=== PATIENT | male | born 1955 | race African-American/Black ===

== ENCOUNTER 2023-11-25 10:35 | Observation (INO) ==
--- NOTE | 2023-11-25 11:28 | Emergency Department Note ---
Impression & Plan Atrial flutter ADMIT ED Provider Note HPI: History obtained from patient The patient is a 67-year-old gentleman who presents the emergency department with a chief complaint of abnormal EKG in the outpatient setting. Patient states that he recently moved here in December 2022 from [place], patient [facility] and his EKG showed what appeared to be in atrial flutter with a rate of 120. Patient was referred to the ED for further management. Patient denies any chest pain or shortness of breath, on arrival here to the ED the patient is moderately hypertensive at 150/101, heart rate is 118, patient is saturating well on room air on my initial assessment otherwise appears to be in no acute distress. Patient states he has no history of atrial fibrillation. ROS: - Per HPI Differential Diagnosis: Arrhythmia to include atrial fibrillation with RVR, atrial flutter, SVT, WPW, ventricular tachycardia, acute coronary syndrome, pulmonary embolism, acute CHF exacerbation, amongst other potential pathologies. *Outpatient medications and allergy history reviewed. PE: General: Alert, obese, no acute distress HEENT: Normocephalic, trachea midline Eyes: Extraocular eye movement is intact, no scleral erythema Pulmonary: Clear to auscultation bilaterally, no wheezing Cardio: Tachycardic rate with regular rhythm GI: Abdomen is soft to palpation : No suprapubic tenderness MSK: No evidence of trauma or malformation of the extremities, no edema Skin: No evidence of rash Neuro: Alert, no focal deficits Psychiatric: Cooperative INDEPENDENT INTERPRETATIONS: playground monitor: (As interpreted by myself): - An order was placed for continuous cardiac monitoring - Patient was noted to be in atrial flutter with a rate of 120 EKG #1: (As interpreted by myself): Rate: 23 Rhythm: Atrial flutter Intervals: Within normal limits ST changes: No ST elevation Time: 1040 EKG #2: (As interpreted by myself): Rate: 86 Rhythm: Atrial flutter with variable AV block Intervals: Within normal limits ST changes: No ST elevation Time: 1203 Chest x-ray: (As interpreted by myself): -CHF Interventions provided in ED: -IV diltiazem Medical Decision Making: IV was established and lab work obtained, patient was placed on monitoring engineer. Lab work shows no leukocytosis, hemoglobin is stable at 13.4, platelet count is normal, CMP does not show any critical findings, troponin is elevated at 73.8, BNP is mildly elevated at 193. Patient denies any chest pain, low suspicion for ACS, suspect troponin elevation is likely related to demand ischemia. Initial EKG appears to show atrial flutter, patient was given IV diltiazem bolus for rate control and rate did improve into the 80s. Repeat EKG per my interpretation shows more obvious atrial flutter with variable block. No acute ischemic changes are noted per my interpretation. I discussed the patient's presentation with on-call cardiology, Dr. Taylor, who recommends admission at this time for rate control, discussion about anticoagulation strategy, echocardiogram, and further management. Case was then discussed with the on- call hospitalist service, Robert Okeefe PA-C, and the patient was placed for admission in stable condition. Consultants/Discussions held with other healthcare providers: -Cardiology, Dr. Taylor -Hospitalist service, Dr. Marie/Robert Okeefe PA-C Disposition discussion held by myself with: -Patient * CRITICAL CARE TIME: ( 35 ) minutes -Stabilization of tachyarrhythmia/atrial flutter with elevated rates requiring IV medications for rate control, time spent at the bedside, interpretation of multiple EKGs, discussion with subspecialty/cardiology service, discussion with hospitalist service and arrangement of admission Diagnosis: 1. New onset atrial flutter, acute 2. Elevated high-sensitivity troponin level, acute 3. Elevated BNP Disposition: Admission Erik Sweeney DO Emergency Medicine Past Med/Surg History Social History Preferred Language: Turkmen Feels Safe at Home: Yes Allergies Allergies Allergy/AdvReac Type Severity Reaction Status Date / Time ibuprofen [From Motrin] Allergy Unknown Verified 11/25/23 12:13 naproxen Allergy Unknown Verified 11/25/23 12:13 sertraline [From Zoloft] Allergy Unknown Verified 11/25/23 12:13 lisinopril AdvReac Unknown Verified 11/25/23 12:13 Home Meds Home Medications Medication Instructions Recorded Confirmed allopurinol 100 mg tablet 200 mg PO DAILY 11/25/23 11/25/23 atorvastatin 80 mg tablet 40 mg PO DAILY 11/25/23 11/25/23 carboxymethylcellulose sodium 0.5 1 drp OPB QID 11/25/23 11/25/23 % eye drops in a dropperette cholecalciferol (vitamin D3) 25 25 mcg PO DAILY 11/25/23 11/25/23 mcg (1,000 unit) tablet (Vitamin D3) clopidogrel 75 mg tablet (Plavix) 75 mg PO DAILY 11/25/23 11/25/23 cyanocobalamin (vitamin B-12) 1,000 mcg PO DAILY 11/25/23 11/25/23 1,000 mcg tablet (Vitamin B-12) diclofenac sodium 1 % topical gel 2 g topical QID PRN .joint pain 11/25/23 11/25/23 duloxetine 20 mg capsule,delayed 20 mg PO DAILY 11/25/23 11/25/23 release hydroxyzine HCl 10 mg tablet 50 mg PO BID PRN Anxiety 11/25/23 11/25/23 losartan 25 mg tablet 25 mg PO DAILY 11/25/23 11/25/23 oxybutynin chloride 5 mg 5 mg PO DAILY 11/25/23 11/25/23 tablet,extended release 24 hr prazosin 2 mg capsule 2 mg PO HS 11/25/23 11/25/23 sildenafil 25 mg tablet 25 mg PO DAILY PRN .ED 11/25/23 11/25/23 trazodone 50 mg tablet 50 mg PO HS PRN Insomnia 11/25/23 11/25/23 turmeric 400 mg capsule 0 mg PO DAILY PRN .. 11/25/23 11/25/23 Results & Data (ED) Vital Signs Vital Signs - 24 hr 11/25/23 10:40 11/25/23 10:48 11/25/23 10:50 Temperature 36.7 C Temperature Source Oral Pulse Rate 123 H 123 H Pulse Rate [Right Finger] 118 H Pulse Rate from SpO2 Sensor 123 H Pulse Rhythm Respiratory Rate 24 20 Respiratory Effort / Characteristics Non-Labored Spontaneous Short of Breath SOB on Exertion Normal for Patient Respiratory Depth Normal Respiratory Pattern Regular Blood Pressure 150/101 H Blood Pressure [Left Arm] 150/101 H Blood Pressure Mean 117 Blood Pressure Mean [Left Arm] 117 Blood Pressure Position [Left Arm] Semi-fowlers Pulse Oximetry 92 91 Oxygen Delivery Method Room Air Sepsis Recent Fever Within 48 Hours Sepsis New/Unexplained Change in Mental Status Sepsis Action Taken by Nursing 11/25/23 10:52 11/25/23 11:10 11/25/23 11:10 Temperature Temperature Source Pulse Rate 124 H Pulse Rate [Right Finger] Pulse Rate from SpO2 Sensor 124 H Pulse Rhythm Respiratory Rate 19 Respiratory Effort / Characteristics Short of Breath SOB on Exertion Respiratory Depth Respiratory Pattern Blood Pressure 129/102 H Blood Pressure [Left Arm] Blood Pressure Mean 111 Blood Pressure Mean [Left Arm] Blood Pressure Position [Left Arm] Pulse Oximetry 93 Oxygen Delivery Method Room Air Sepsis Recent Fever Within 48 Hours No Sepsis New/Unexplained Change in Mental Status N/A Sepsis Action Taken by Nursing No Action Required 11/25/23 11:45 11/25/23 12:07 11/25/23 12:15 Temperature Temperature Source Pulse Rate 86 86 94 H Pulse Rate [Right Finger] Pulse Rate from SpO2 Sensor 87 99 H Pulse Rhythm Irregular Respiratory Rate 15 15 18 Respiratory Effort / Characteristics Respiratory Depth Respiratory Pattern Blood Pressure 132/83 161/82 H Blood Pressure [Left Arm] Blood Pressure Mean 99 108 Blood Pressure Mean [Left Arm] Blood Pressure Position [Left Arm] Pulse Oximetry 92 92 92 Oxygen Delivery Method Room Air Sepsis Recent Fever Within 48 Hours Sepsis New/Unexplained Change in Mental Status Sepsis Action Taken by Nursing 11/25/23 12:30 11/25/23 13:00 11/25/23 13:00 Temperature Temperature Source Pulse Rate 106 H 104 H Pulse Rate [Right Finger] Pulse Rate from SpO2 Sensor 108 H Pulse Rhythm Respiratory Rate 30 H 26 H Respiratory Effort / Characteristics Respiratory Depth Respiratory Pattern Blood Pressure 149/98 H Blood Pressure [Left Arm] Blood Pressure Mean 120 Blood Pressure Mean [Left Arm] Blood Pressure Position [Left Arm] Pulse Oximetry 96 Oxygen Delivery Method Sepsis Recent Fever Within 48 Hours Sepsis New/Unexplained Change in Mental Status Sepsis Action Taken by Nursing 11/25/23 13:17 11/25/23 13:17 Temperature Temperature Source Pulse Rate 86 Pulse Rate [Right Finger] Pulse Rate from SpO2 Sensor 91 H Pulse Rhythm Respiratory Rate 18 Respiratory Effort / Characteristics Respiratory Depth Respiratory Pattern Blood Pressure 167/104 H Blood Pressure [Left Arm] Blood Pressure Mean 127 Blood Pressure Mean [Left Arm] Blood Pressure Position [Left Arm] Pulse Oximetry 94 Oxygen Delivery Method Sepsis Recent Fever Within 48 Hours Sepsis New/Unexplained Change in Mental Status Sepsis Action Taken by Nursing Laboratory Data 11/25/23 10:50 11/25/23 10:50 Lab Results 11/25/23 Range/Units 10:50 WBC 7.45 (4.8-10.8) K/ul RBC 4.76 (4.70-6.10) M/uL Hgb 13.4 L (14.0-18.0) g/dl Hct 41.9 L (42.0-52.0) % MCV 88.0 (80.0-100.0) fL MCH 28.2 (25.0-34.0) pg MCHC 32.0 (32.0-36.0) g/dL RDW Std Deviation 53.1 H (36.4-46.3) fL RDW Coeff of Dejan 16.2 H (11.5-14.5) % Plt Count 250 (130-400) K/uL MPV 9.4 (9.4-12.4) fL Immature Gran % (Auto) 0.4 % Neut % (Auto) 63.3 % Lymph % (Auto) 23.5 % Dubois % (Auto) 10.5 % Eos % (Auto) 1.6 % Baso % (Auto) 0.7 % Neut # (Auto) 4.72 (1.40-6.50) K/uL Lymph # (Auto) 1.75 (1.20-3.40) K/uL Dubois # (Auto) 0.78 H (0.11-0.59) K/uL Eos # (Auto) 0.12 (0.00-0.50) K/uL Baso # (Auto) 0.05 (0.00-0.20) K/uL Immature Gran # (Auto) 0.03 (0.01-0.20) K/uL PT 12.1 H (9.0-12.0) Seconds INR 1.1 (0.9-1.1) APTT 29 (21-31) Seconds PTT Ratio 1.0 Sodium 138 (136-145) mmol/L Potassium 4.0 (3.5-5.1) mmol/L Chloride 103 (98-107) mmol/L Carbon Dioxide 28 (21-32) mmol/L Anion Gap 7 (3-11) BUN 19 (6-23) mg/dl Creatinine 1.27 (0.6-1.4) mg/dl Est Cr Clr Drug Dosing 81.9 ml/min Est GFR ( Amer) 67.8 ml/min Est GFR (Non-Af Amer) 58.5 ml/min BUN/Creatinine Ratio 15.0 (10-20) Glucose 102 H (70-99(Fasting)) mg/dl Calcium 9.1 (8.6-10.3) mg/dl Magnesium 1.6 L (1.7-2.4) mg/dl Total Bilirubin 0.7 (0.2-1.0) mg/dl AST 22 (13-39) U/L ALT 21 (7-52) U/L Alkaline Phosphatase 152 H (34-104) U/L Troponin I High Sens 73.8 H* (0-20) pg/ml B-Natriuretic Peptide 193 H (0-100) pg/ml Total Protein 7.4 (6.0-8.3) gm/dl Albumin 3.9 (3.4-5.0) gm/dl Globulin 3.5 (2.5-4.0) gm/dl Albumin/Globulin Ratio 1.1 (0.9-2) Administered Medications Heparin Sodium/Dextrose (Heparin Sodium/Dextrose) 25,000 units in 500 mls @ 20 mls/hr IV .Q24H [facility]; Protocol Stop: 12/25/23 13:59 Last Admin: 11/25/23 15:02 Dose: 1,000 units/hr, 20 mls/hr Documented By: RADHA Co-signed By: LATONIA Discontinued Medications Diltiazem HCl (Diltiazem Hcl 5 Mg/Ml 5 Ml Vial) 10 mg IV NOW STA Stop: 11/25/23 11:25 Last Admin: 11/25/23 11:34 Dose: 10 mg Documented By: RADHA Co-signed By: RAQUEL Furosemide (Furosemide Inj 20 Mg/2 Ml Vial) 20 mg IV ONE ONE Stop: 11/25/23 13:51 Last Admin: 11/25/23 14:51 Dose: 20 mg Documented By: RADHA Heparin Sodium (Porcine) (Heparin Sod (Porcine) 1000 Unit/Ml) 4,000 units IV NOW ONE Stop: 11/25/23 14:46 Last Admin: 11/25/23 15:03 Dose: 4,000 units Documented By: RADHA Co-signed By: LATONIA Heparin Sodium (Porcine) (Heparin Sod (Porcine) 1000 Unit/Ml) Confirm Administered Dose 1,000 units .ROUTE .STK-MED ONE Stop: 11/25/23 14:38 Last Admin: 11/25/23 15:00 Dose: Not Given Documented By: RADHA Heparin Sodium/Dextrose (Heparin 58318 Unit/500 Ml D5w) Confirm Administered Dose 25,000 units IV .STK-MED ONE Stop: 11/25/23 14:38 Last Admin: 11/25/23 15:00 Dose: Not Given Documented By: RADHA Sodium Chloride (Nss) 1,000 mls @ 999 mls/hr IV .Q1H1M ONE Stop: 11/25/23 12:24 Last Infusion: 11/25/23 12:35 Dose: Infused Documented By: Admin: 11/25/23 11:34 Dose: 999 mls/hr Documented By: RADHA Metoprolol Tartrate (Metoprolol Tartrate 25 Mg Tab) 25 mg PO NOW STA Stop: 11/25/23 13:17 Last Admin: 11/25/23 14:54 Dose: 25 mg Documented By: RADHA Nitroglycerin (Nitroglycerin 2% Ointment 30gm Tube) 0.5 inch EXT NOW ONE Stop: 11/25/23 14:35 Last Admin: 11/25/23 15:11 Dose: Not Given Documented By: RADHA Imaging Data Radiologist's Impression: Chest X-Ray 11/25/23 11:07 SINGLE VIEW CHEST CLINICAL HISTORY: Atypical chest pain. FINDINGS: An AP, portable, upright chest radiograph is obtained. No prior studies are available for comparison at the time of dictation. The heart is enlarged. There is pulmonary vascular congestion. No airspace consolidation or large pleural effusion identified. Trace pleural fluid is seen along the right minor fissure. No pneumothorax is seen. The bony thorax is grossly intact. IMPRESSION: Cardiomegaly with evidence of congestive failure. ACT 112: Negative or not required by law. Electronically signed by: Nino Polanco M.D. 11/25/2023 11:53 AM Discharge Plan Visit Data Chief Complaint: Cardiac Assessment ED Provider: Erik Sweeney Discharge Problem: Atrial flutter
[2023-11-25] MEDS: SODIUM CHLORIDE 0.9% 1,000 ML IV ONE (11:34)
[2023-11-25] MEDS: dilTIAZem HCl 5 MG/ML 5 ML VIAL IV STA (11:34)
--- NOTE | 2023-11-25 11:39 | Electrocardiogram Report ---
Test Reason : Blood Pressure : / mmHG Vent. Rate : 123 BPM Atrial Rate : 246 BPM P-R Int : 000 ms QRS Dur : 086 ms QT Int : 292 ms P-R-T Axes : -85 -57 111 degrees QTc Int : 418 ms Probable Atrial flutter with 2:1 A-V conduction Left anterior fascicular block Left ventricular hypertrophy with repolarization abnormality Minor ST elevation in Inferior leads Abnormal ECG No previous ECGs available Confirmed by Vishal Taylor ([id number]) on 11/25/2023 11:39:15 AM Referred By: Confirmed By:Vishal Taylor
[2023-11-25 11:49] LABS: Basophils # (auto) 0.05 K/uL (0.00-0.20); Basophils % (auto) 0.7 %; Eosinophils # (auto) 0.12 K/uL (0.00-0.50); Eosinophils % (auto) 1.6 %; Hematocrit (blood only) 41.9 % (42.0-52.0); Hemoglobin 13.4 g/dl (14.0-18.0); Immature Granulocytes # (auto) 0.03 K/uL (0.01-0.20); Immature Granulocytes % (auto) 0.4 %; Lymphocytes # (auto) 1.75 K/uL (1.20-3.40); Lymphocytes % (auto) 23.5 %; Mean Corpuscular Hemoglobin 28.2 pg (25.0-34.0); Mean Platelet Volume 9.4 fL (9.4-12.4); Monocytes # (auto) 0.78 K/uL (0.11-0.59); Monocytes % (auto) 10.5 %; Neutrophils # (auto) 4.72 K/uL (1.40-6.50); Neutrophils % (auto) 63.3 %; Platelet Count 250 K/uL (130-400); RDW Coefficient of Variation 16.2 % (11.5-14.5); RDW Standard Deviation 53.1 fL (36.4-46.3); Red Blood Count 4.76 M/uL (4.70-6.10); White Blood Count 7.45 K/ul (4.8-10.8)
--- NOTE | 2023-11-25 11:54 | XRay Report ---
SINGLE VIEW CHEST CLINICAL HISTORY: Atypical chest pain. FINDINGS: An AP, portable, upright chest radiograph is obtained. No prior studies are available for c omparison at the time of dictation. The heart is enlarged. There is pulmonary vascular congestion. No airspace consolidation or large pleural effusion identified. Trace pleural fluid is seen along the r ight minor fissure. No pneumothorax is seen. The bony thorax is grossly intact. IMPRESSION: Cardiomegaly with evidence of congestive failure. ACT 112: Negative or not required by law. Electronically signed by: Nino Polanco M.D. 11/25/2023 11:53 AM
[2023-11-25 11:56] LABS: Albumin Globulin Ratio 1.1 (0.9-2); Albumin Level 3.9 gm/dl (3.4-5.0); Bilirubin,Total 0.7 mg/dl (0.2-1.0); Calcium 9.1 mg/dl (8.6-10.3); Creatinine Clr Calc Pharmacy 81.9 ml/min; Est GFR (African American) 67.8 ml/min; Est GFR (Non-African American) 58.5 ml/min; Globulin 3.5 gm/dl (2.5-4.0); Total Protein 7.4 gm/dl (6.0-8.3)
[2023-11-25 12:05] LABS: INR 1.1 (0.9-1.1); Partial Thromboplastin Time 29 Seconds (21-31); Prothrombin Time 12.1 Seconds (9.0-12.0)
[2023-11-25 12:09] LABS: Troponin I High Sensitivity 73.8 pg/ml (0-20)
--- NOTE | 2023-11-25 13:20 | History & Physical Report ---
Date of Service November 25, 2023 Assessment & Plan (1) Atrial flutter: Plan: -Currently in rate controlled atrial flutter with variable AV block and otherwise stable -[facility] in atrial flutter with HR in the 120's -Patient reports he has been experiencing GRIGGS with left sided chest pain over the past 2-3 months >No other radiation of pain, resolves with rest -Appears volume overloaded on exam with BL non-pitting edema and signs of congestive failure on CXR -Cardiology was consulted and will be following -S/P 1L NSS and 10 mg IV diltiazem in the ED -Will start the patient on a weight based heparin drip w/bolus while the rest of his workup is obtained -Will start 25 mg PO Metoprolol Tartrate BID with first dose now -Will obtain TTE, BNP, repeat high sen trop on admission -Will obtain BL LE venous dopplers to monitor for signs of DVT -If concerning findings on Echo and/or venous dopplers will obtain CTA of the chest w/PE protocol >Patient is being started on a heparin drip on admission, regardless -Will give 20 mg IV lasix now, will wait for the rest of his workup to order additional diuretics -Will obtain mag level -Heparin drip for DVT PPX -HH/DMII diet with 2gm sodium and 1800 mL fluid restriction for now -AM CBC, BMP, mag, PT/INR (2) Elevated troponin: Plan: -Initial high sen trop elevated at 7 3 -Patient is currently asymptomatic at rest but has been experiencing GRIGGS with left sided chest pain for the past 2-3 months -ECG shows atrial flutter with variable conduction block, does not appear to have acute ST segment or T-wave changes -At this time his elevated troponin is most likely due to demand from volume overload and atrial flutter, but cannot rule out ACS at this time -Will follow 2 hour high sen trop and continue to trend q6h overnight -Will follow TTE and BL venous dopplers -Continue heparin drip and follow cardiology consult (3) Volume overload: Plan: -Unsure at this time if his volume overload is the result of his atrial flutter leading to CHF or if his volume overload led to his a-flutter at this time -Stable on RA and without respiratory distress -Will give 20 mg IV lasix now as he received 1L NSS prior to admission -Will follow TTE -Will wait to order additional diuresis on admission until the rest of his workup is back -HH/DMII diet with 2gm sodium and 1800 mL fluid restrictions for now -Follow cardiology consult (4) DMII (diabetes mellitus, type 2): Plan: -Reports latest A1c was 6.7 in the [place] -[facility] the [facility] -Glucose in the ED was 102 -Will monitor BSG ACHS, goal is 110-160 -Start CF of 50 for now, will hold carb ratio -Adjust regimen as needed (5) HTN (hypertension): Plan: -Currently stable -Will continue losartan -Monitor for hypotension with starting metoprolol (6) Cerebral arteriosclerosis with history of previous stroke: Plan: -Baseline LUE weakness since previous CVA in 2016 -Continue statin and plavix (7) Swelling of both lower extremities: Plan: -Follow Venous dopplers, TTE, and response to 20 mg IV lasix on admission (8) Anxiety: Plan: -Continue Duloxetine, HS trazodone (9) Tobacco abuse: Plan: -Currently down to 1 cigarette daily -Continue to stress the importance of cessation -Will order prn nicotine gum as requested by the patient Plan The patient was discussed with Dr. Marie at the time of the admission History of Present Illness Chief Complaint: Abnormal outpatient ECG Primary Care Provider: ALEXIA PCP Pradeep is a very pleasant 67 year old male with a PMH significant for previous CVA in 2016 with residual LUE weakness, current tobacco abuse (1 cigarette daily currently), alcohol use (1 beer daily), HTN, DMII, hyperlipidemia, anxiety, BPH, and Gout who presented to the [facility] ED on 11/25/23 from the [facility] after being found in new onset atrial flutter. He was reported to be in atrial flutter with HR in the 120's on EMS arrival but otherwise stable. On arrival to the ED he was found to be in atrial flutter with a 2:1 AV block but was otherwise stable. Labs were significant for an initial high sen trop of 73. Chest xray was read as "Cardiomegaly with evidence of congestive failure.". The patient was given 1L NSS and 10 mg IV diltiazem in the ED and remained stable. Cardiology was consulted and recommended admission for initiation of anticoagulation, further workup, and initiation of beta blocking agents. At the time of the exam the patient was sitting comfortably in bed in no acute distress. He moved to [place] from [place] approximately one year ago. The main reason for his move was to gain sobriety from crack and alcohol use. He has not used recreational drugs since arriving in [place]. He states that at most he will have one beer a day. He will go through a six pack in approximately one week and denies a previous hx of withdrawal when he stops drinking. He confirms that he has been on plavix since his stroke in 2016. He denies a hx of previous [place], Cardiac stent placement, or previous hx of CHF. He states his recent A1c was 6.7, he will be [facility]. He has been experiencing GRIGGS and mild left-sided chest pain for the past 2-3 months. He did not mention it to anyone as, "I didn't want to be a bother to anyone". He denies symptoms starting at rest and states that his symptoms resolve with rest. He has a chronic smoker's cough which has been unchanged. He denies the left-sided chest pain radiating to his back, neck, jaw, or arms and denies previous lightheadedness/dizziness. He has been experiencing progressive BL LE swelling but denies pain. Denies recent hemoptysis, pleuritic chest pain, abd pain, nausea, vomiting, diarrhea, dysuria, hematuria, melena, and recent trauma. He is a full code. We discussed starting anticoagulation due to his atrial flutter, he denies previous hx of major bleeding or recurrent falls. He is in agreement with starting anticoagulation today. Please refer to Dr. Marie's attestation for any changes to the treatment plan Allergies Allergy/AdvReac Type Severity Reaction Status Date / Time ibuprofen [From Motrin] Allergy Unknown Verified 11/25/23 12:13 naproxen Allergy Unknown Verified 11/25/23 12:13 sertraline [From Zoloft] Allergy Unknown Verified 11/25/23 12:13 lisinopril AdvReac Unknown Verified 11/25/23 12:13 Home Medications Medication Instructions Recorded Confirmed Type allopurinol 100 mg tablet 200 mg PO DAILY 11/25/23 11/25/23 History atorvastatin 80 mg tablet 40 mg PO DAILY 11/25/23 11/25/23 History carboxymethylcellulose sodium 0.5 1 drp OPB QID 11/25/23 11/25/23 History % eye drops in a dropperette cholecalciferol (vitamin D3) 25 25 mcg PO DAILY 11/25/23 11/25/23 History mcg (1,000 unit) tablet (Vitamin D3) clopidogrel 75 mg tablet (Plavix) 75 mg PO DAILY 11/25/23 11/25/23 History cyanocobalamin (vitamin B-12) 1,000 mcg PO DAILY 11/25/23 11/25/23 History 1,000 mcg tablet (Vitamin B-12) diclofenac sodium 1 % topical gel 2 g topical QID PRN .joint pain 11/25/23 11/25/23 History duloxetine 20 mg capsule,delayed 20 mg PO DAILY 11/25/23 11/25/23 History release hydroxyzine HCl 10 mg tablet 50 mg PO BID PRN Anxiety 11/25/23 11/25/23 History losartan 25 mg tablet 25 mg PO DAILY 11/25/23 11/25/23 History oxybutynin chloride 5 mg 5 mg PO DAILY 11/25/23 11/25/23 History tablet,extended release 24 hr prazosin 2 mg capsule 2 mg PO HS 11/25/23 11/25/23 History sildenafil 25 mg tablet 25 mg PO DAILY PRN .ED 11/25/23 11/25/23 History trazodone 50 mg tablet 50 mg PO HS PRN Insomnia 11/25/23 11/25/23 History turmeric 400 mg capsule 0 mg PO DAILY PRN .. 11/25/23 11/25/23 History Past Med/Surg History Social History Preferred Language: Jordanian Feels Safe at Home: Yes Physical Exam Physical Exam: Physical Exam: General: In no acute distress, stated age, non-toxic appearing HEENT: Normocephalic, atraumatic, no scleral icterus, pupils around round, symmetrical, and reactive to light, moist mucus membranes, trachea midline, no thyromegaly Chest/Pulm: No respiratory distress, symmetrical chest expansion, decreased breath sounds in the BL lower lung wylie with crackles in the BL mid aditi wylie Cardiac: RRR, no murmurs noted Abdomen: Negative for ascites and bruising, normoactive bowel sounds, soft, non-tender to palpation throughout Musculoskeletal: Symmetrical and without signs of acute trauma, baseline LUE weakness noted Extremities: Radial, dorsalis pedis, and posterior tibial pulses are intact and symmetrical, BL non-pitting edema Skin: Warm, dry, no rashes , lesions, or scars noted Neuro: Alert and oriented to person, place, month, year, and president, no focal defects, baseline LUE weakness weakness from previous CVA noted, otherwise WNL Psych: No acute distress, calm and cooperative during the exam Results & Data Results & Data Vital Signs (Past 12 Hours) Vital Signs Temp Pulse Pulse Resp BP BP Pulse Ox 11/25/23 12:07 86 15 92 11/25/23 11:45 86 15 132/83 92 11/25/23 11:10 124 H 19 129/102 H 93 11/25/23 10:52 11/25/23 10:50 36.7 C 118 H 20 150/101 H 91 11/25/23 10:48 123 H 11/25/23 10:40 123 H 24 150/101 H 92 O2 Del Method 11/25/23 12:07 Room Air 11/25/23 11:45 11/25/23 11:10 11/25/23 10:52 Room Air 11/25/23 10:50 Room Air 11/25/23 10:48 11/25/23 10:40 Laboratory Results Abnormal lab results 11/25/23 Range/Units 10:50 Hgb 13.4 L (14.0-18.0) g/dl Hct 41.9 L (42.0-52.0) % RDW Std Deviation 53.1 H (36.4-46.3) fL RDW Coeff of Dejan 16.2 H (11.5-14.5) % [place] # (Auto) 0.78 H (0.11-0.59) K/uL PT 12.1 H (9.0-12.0) Seconds Glucose 102 H (70-99(Fasting)) mg/dl Alkaline Phosphatase 152 H (34-104) U/L Troponin I High Sens 73.8 H* (0-20) pg/ml Diagnostic Findings Chest X-Ray 11/25/23 11:07 SINGLE VIEW CHEST CLINICAL HISTORY: Atypical chest pain. FINDINGS: An AP, portable, upright chest radiograph is obtained. No prior studies are available for comparison at the time of dictation. The heart is enlarged. There is pulmonary vascular congestion. No airspace consolidation or large pleural effusion identified. Trace pleural fluid is seen along the right minor fissure. No pneumothorax is seen. The bony thorax is grossly intact. IMPRESSION: Cardiomegaly with evidence of congestive failure. ACT 112: Negative or not required by law. Electronically signed by: Nino Polanco M.D. 11/25/2023 11:53 AM ECG Additional Comments: Atrial flutter with variable A-V block Left anterior fascicular block Abnormal ECG When compared with ECG of 25-NOV-2023 10:40, No significant change was found Code Status & VTE Plan Code Status Full code VTE Prophylaxis Plan VTE Prophylaxis will be ordered: Yes Supervising Physician Co-Signing Physician Notes Patient seen and examined, chart reviewed, case discussed with Robert Okeefe PA-C and I agree with the assessment and plan as above except as otherwise noted Labs and images reviewed 67-year-old male with a past medical history of prior CVA with residual left upper extremity hand weakness, strabismus, tobacco use, hypertension, DM2, hyperlipidemia, BPH, SASKIA on CPAP who presents for evaluation new onset atrial flutter with rate in the 120s. EKG with atrial flutter 2-1 block. Initial Trope 73 without chest pain, mild congestive heart failure on x-ray? Rate related failure. Cardiology was consulted while in the ER. Did bedside assessment patient reports he has no chest pain, no palpitations, no inspiratory pain, no shortness of breath and overall feels well. He reports he has not had any pain with breathing, syncope, presyncope, or chest pain. He does endorse t hat he had some shortness of breath and left-sided chest pain intermittently over the past month or so, but these do not occur at rest and at the least resolved with rest . undistressed no additional questions or concerns at bedside. Lungs are clear, heart rate is regular, tachycardic at bedside assessment. Patient is mild soft tissue swelling to lower extremities bilaterally and trace pitting edema in the ankles symmetrically.. Anticoagulation for stroke prophylaxis, patient is been started on heparin with target transition to DOAC if doing well. Metoprolol twice daily has been ordered, patient received diltiazem IV push x 1 while in the ER with good rate control. CPAP ordered. Troponin is trended, echo ordered. Do not suspect ACS on admission however patient likely does have underlying coronary disease with consistent reproducible exertional angina and demand ischemia with his RVR. Agree with assessment and further workup as above PG Care Time/CCT Total # of Minutes Spent Total Time Spent with Patient: Total time spent is greater than 50% in coordination of care (as documented) at patient's floor/unit and/or counseling patient: [place] [address] INT INP/OBS CARE 3/75MIN Patient Type New Medical Decision Making High Complexity Diagnoses Atrial flutter I48.92 Elevated troponin R79.89 Volume overload E87.70 DMII (diabetes mellitus, type 2) E11.9 HTN (hypertension) I10 Cerebral arteriosclerosis with history of previous stroke I67.2; Z86.73 Swelling of both lower extremities M79.89 Anxiety F41.9 Tobacco abuse Z72.0
[2023-11-25] MEDS ORDERED: GLUCOSE 10 TAB/TUBE PO PRN (13:45)
[2023-11-25] MEDS ORDERED: GLUCOSE 40% GEL 15 GM TUBE PO PRN (13:45)
[2023-11-25] MEDS ORDERED: CARBOHYDRATES FOR HYPOGLYCEMIA PO PRN (13:45)
[2023-11-25] MEDS ORDERED: DEXTROSE 50% 50 ML SYRINGE IV PRN (13:45)
[2023-11-25] MEDS ORDERED: GLUCAGON FOR INJ 1 MG VIAL SQ PRN (13:45)
[2023-11-25] MEDS ORDERED: NICOTINE POLACRILEX 2 MG GUM MT PRN (14:18)
[2023-11-25 14:44] LABS: Magnesium 1.6 mg/dl (1.7-2.4)
[2023-11-25] MEDS: FUROSEMIDE INJ 20 MG/2 ML VIAL IV ONE (14:51)
[2023-11-25] MEDS: METOPROLOL TARTRATE 25 MG TAB PO STA (14:54)
[2023-11-25] MEDS: HEPARIN 25000 UNIT/500 ML D5W IV ONE (15:00)
[2023-11-25] MEDS: HEPARIN SOD (PORCINE) 1000 UNIT/ML ONE (15:00)
[2023-11-25] MEDS: HEPARIN SODIUM/DEXTROSE 25,000 UNITS/500 ML BAG IV SCH (15:02)
[2023-11-25] MEDS: HEPARIN SOD (PORCINE) 1000 UNIT/ML IV ONE ×2 (15:03→23:29)
--- NOTE | 2023-11-25 15:08 | Electrocardiogram Report ---
Test Reason : Blood Pressure : / mmHG Vent. Rate : 086 BPM Atrial Rate : 241 BPM P-R Int : 000 ms QRS Dur : 086 ms QT Int : 366 ms P-R-T Axes : -89 -57 108 degrees QTc Int : 437 ms Atrial flutter with variable A-V block Left anterior fascicular block Abnormal ECG When compared with ECG of 25-NOV-2023 10:40, HR has decreased by 37 bpm Confirmed by Vishal Taylor ([id number]) on 11/25/2023 3:08:03 PM Referred By: REFERRED SELF Confirmed By:Vishal Taylor
[2023-11-25] MEDS: NITROGLYCERIN 2% OINTMENT 30GM TUBE EXT ONE (15:11)
[2023-11-25] MEDS ORDERED: METOPROLOL TARTRATE 1 MG/ML VIAL IV PRN (15:42)
[2023-11-25] MEDS: Heparin IV Adult Wt-Based Low-Dose w/ INITIAL Bolus Protocol IV SCH (16:03)
[2023-11-25] MEDS ORDERED: hydrOXYzine HCl 25 MG TAB PO PRN (16:06)
[2023-11-25] MEDS: MAGNESIUM SULFATE / D5W 1 GM/100 ML BAG IV SCH (16:40)
--- NOTE | 2023-11-25 17:23 | Ultrasound Report ---
ULTRASOUND BILATERAL LOWER EXTREMITY VENOUS CLINICAL HISTORY: Lower extremity edema. COMPARISON STUDY: No priors. TECHNIQUE: Real-time, grayscale, and color Doppler sonography of the deep veins of the right and left lower extremity was performed from the inguinal crease to the calf. Compression and augmentation wer e utilized. FINDINGS: There is no sonographic evidence of deep venous thrombosis identified in the right or left lower extremity. The common femoral, superficial femoral, and popliteal veins are patent and normally compressible bilaterally. The greater saphenous vein and the profunda femoris vein at the junction w ith the common femoral vein are clear in both legs. The visualized calf veins are patent bilaterally. IMPRESSION: There is no sonographic evidence of deep venous thrombosis identified in the right or lef t lower extremity. ACT 112: Negative or not required by law. Electronically signed by: Nino Polanco M.D. 11/25/2023 5:21 PM
[2023-11-25] MEDS: INSULIN ASPART PER UNIT CHARGE SC SCH (18:19)
--- NOTE | 2023-11-25 18:39 | XCELERA ---
[id number]
[2023-11-25 21:42] LABS: ANTI-Xa, UFH(UnfractionatedHep 0.17 IU/ml (0.3-0.7)
[2023-11-25] MEDS: PRAZOSIN HCL 1 MG CAP PO SCH (21:43)
[2023-11-25] MEDS: NITROGLYCERIN 2% OINTMENT 30GM TUBE EXT SCH (21:44)
[2023-11-25] MEDS: traZODone HCL 50 MG TAB PO PRN (21:44)
[2023-11-26 06:39] LABS: Basophils # (auto) 0.05 K/uL (0.00-0.20); Basophils % (auto) 0.8 %; Eosinophils # (auto) 0.21 K/uL (0.00-0.50); Eosinophils % (auto) 3.4 %; Hematocrit (blood only) 38.4 % (42.0-52.0); Hemoglobin 12.4 g/dl (14.0-18.0); Immature Granulocytes # (auto) 0.01 K/uL (0.01-0.20); Immature Granulocytes % (auto) 0.2 %; Lymphocytes # (auto) 2.05 K/uL (1.20-3.40); Lymphocytes % (auto) 32.9 %; Mean Corpuscular Hemoglobin 28.6 pg (25.0-34.0); Mean Corpuscular Hgb Conc 32.3 g/dL (32.0-36.0); Mean Corpuscular Volume 88.7 fL (80.0-100.0); Mean Platelet Volume 9.3 fL (9.4-12.4); Monocytes # (auto) 0.72 K/uL (0.11-0.59); Monocytes % (auto) 11.6 %; Neutrophils # (auto) 3.19 K/uL (1.40-6.50); Neutrophils % (auto) 51.1 %; Platelet Count 214 K/uL (130-400); RDW Coefficient of Variation 16.2 % (11.5-14.5); RDW Standard Deviation 52.8 fL (36.4-46.3); Red Blood Count 4.33 M/uL (4.70-6.10); White Blood Count 6.23 K/ul (4.8-10.8)
[2023-11-26 06:46] LABS: BUN Creatinine Ratio 14.9 (10-20); Calcium 8.6 mg/dl (8.6-10.3); Creatinine Clr Calc Pharmacy 91.3 ml/min; Est GFR (African American) 77.2 ml/min; Est GFR (Non-African American) 66.6 ml/min; Magnesium 2.1 mg/dl (1.7-2.4); Potassium 3.9 mmol/L (3.5-5.1)
[2023-11-26 06:47] LABS: ANTI-Xa, UFH(UnfractionatedHep 0.34 IU/ml (0.3-0.7); INR 1.1 (0.9-1.1); Prothrombin Time 12.3 Seconds (9.0-12.0)
[2023-11-26] MEDS: FUROSEMIDE 40 MG/4 ML VIAL IV SCH (08:10)
[2023-11-26] MEDS: allopurinoL 100 MG TAB PO SCH (08:11)
[2023-11-26] MEDS: ATORVASTATIN 40 MG TAB PO SCH (08:11)
[2023-11-26] MEDS: DULoxetine HCL 20 MG CAP PO SCH (08:12)
[2023-11-26] MEDS: CLOPIDOGREL BISULFATE 75 MG TAB PO SCH (08:12)
[2023-11-26] MEDS: LOSARTAN POTASSIUM 25 MG TAB PO SCH (08:13)
[2023-11-26] MEDS: OXYBUTYNIN CHLORIDE XL 5 MG TABCR PO SCH (08:15)
[2023-11-26 08:55] LABS: T4 Free Thyroxine 0.85 ng/dl (0.61-1.60)
--- NOTE | 2023-11-26 11:35 | Cardiology Consultation ---
Date of Consultation November 26, 2023 Assessment & Plan (1) Atrial flutter: (2) HTN (hypertension): (3) (HFpEF) heart failure with preserved ejection fraction: (4) Elevated troponin: (5) Hypomagnesemia: (6) Swelling of both lower extremities: (7) DMII (diabetes mellitus, type 2): Plan 67-year-old man with vascular risk factors (DM, HTN, dyslipidemia, age, gender) who was incidentally noted to have atrial flutter with suboptimally controlled rate and hospitalized overnight for further evaluation. He does appear hypervolemic, has minimal/flat troponin curve is likely mild demand ischemia from tachycardia and volume overload, no evidence of acute coronary process. Ideally, would gradually volume unload and more closely monitor rate control, but he is anxious to leave and denies any current symptoms. Would recommend discharge on current low-dose of metoprolol, it seems to be regulating his heart rate reasonably well, but would change from metoprolol tartrate to metoprolol succinate 25 mg daily. Recommend apixaban 5 mg twice daily for anticoagulation. Recommend routine diuretic use, could add hydrochlorothiazide and increase his losartan, recommend losartan/HCT 50/25 mg daily. Recommend magnesium supplement, magnesium chloride 64 mg daily. [facility] plans [facility], emphasized the importance of establishing cardiac care there or with local cardiology. History of Present Illness Reason for Consultation: New onset atrial flutter Requesting Physician: Marlon Garcia MD Attending Physician: Marlon Garcia MD History of Present Illness 67-year-old man with history of DM, HTN, CVA 2016 (clopidogrel) and chronic leg edema, but no prior cardiac history, incidentally noted to have atrial flutter and sent to the ER for further evaluation. At recent baseline, he notes no dyspnea on exertion or subjective palpitations. He does note chronic leg swelling which may have increased recently. He denied having chest pain to me, but admission history notes that he does have discomfort on higher levels of exertion. No rest symptoms. No orthopnea or PND. Evaluation here showed periods of significant hypertension (up to 213/129 mmHg), chest x-ray with vascular congestion, echocardiogram with moderate LVH and mild pulmonary hypertension. Troponin curve was minimally elevated and flat. He was treated with Nitropaste, dose of IV diuretic, and heparin. He [facility] from [place] about a year ago, he is anxious to travel back there to visit and had hoped to go later today. He is generally followed [facility] and plans to follow-up there for further medical care. At the time of my evaluation this morning, he stated he was comfortable with no somatic complaints and was anxious to leave. Allergies Allergy/AdvReac Type Severity Reaction Status Date / Time ibuprofen [From Motrin] Allergy Unknown Verified 11/25/23 12:13 naproxen Allergy Unknown Verified 11/25/23 12:13 sertraline [From Zoloft] Allergy Unknown Verified 11/25/23 12:13 lisinopril AdvReac Unknown Verified 11/25/23 12:13 Home Medications Medication Instructions Recorded Confirmed Type allopurinol 100 mg tablet 200 mg PO DAILY 11/25/23 11/25/23 History atorvastatin 80 mg tablet 40 mg PO DAILY 11/25/23 11/25/23 History carboxymethylcellulose sodium 0.5 1 drp OPB QID 11/25/23 11/25/23 History % eye drops in a dropperette cholecalciferol (vitamin D3) 25 25 mcg PO DAILY 11/25/23 11/25/23 History mcg (1,000 unit) tablet (Vitamin D3) clopidogrel 75 mg tablet (Plavix) 75 mg PO DAILY 11/25/23 11/25/23 History cyanocobalamin (vitamin B-12) 1,000 mcg PO DAILY 11/25/23 11/25/23 History 1,000 mcg tablet (Vitamin B-12) diclofenac sodium 1 % topical gel 2 g topical QID PRN .joint pain 11/25/23 11/25/23 History duloxetine 20 mg capsule,delayed 20 mg PO DAILY 11/25/23 11/25/23 History release hydroxyzine HCl 10 mg tablet 50 mg PO BID PRN Anxiety 11/25/23 11/25/23 History losartan 25 mg tablet 25 mg PO DAILY 11/25/23 11/25/23 History oxybutynin chloride 5 mg 5 mg PO DAILY 11/25/23 11/25/23 History tablet,extended release 24 hr prazosin 2 mg capsule 2 mg PO HS 11/25/23 11/25/23 History sildenafil 25 mg tablet 25 mg PO DAILY PRN .ED 11/25/23 11/25/23 History trazodone 50 mg tablet 50 mg PO HS PRN Insomnia 11/25/23 11/25/23 History turmeric 400 mg capsule 0 mg PO DAILY PRN .. 11/25/23 11/25/23 History Patient History Social History Preferred Language: Irish Communication Ability: Effective Feels Safe at Home: Yes Assistive Devices: None Physical Exam Physical Exam: No distress. Afebrile. Normotensive. Pulse 63 bpm and slightly irregular. Skin: no ecchymoses or generalized lesions. HEENT: unremarkable. Neck: JVP elevated two thirds of the way to the angle of the jaw at 90 degrees, no carotid bruits. Lungs: Generally clear, few basilar crackles. No wheezing or accessory muscle use. Cardiac: Slightly irregular rhythm, normal S1-2, no obvious murmur. Abdomen: benign. Extremities: 2+ pretibial edema, pulses intact. Neurologic: normal affect and conversation, nonfocal. Results & Data Vital Signs (Past 12 Hours) Vital Signs Pulse Resp Pulse Ox 11/26/23 08:09 63 11/26/23 02:00 91 H 35 H 92 Laboratory Results Troponin values between 72 and 85 on 5 draws. BNP mildly elevated at 193. Hemoglobin 12.4 with normal white count. Normal electrolytes, BUN 17, creatinine 1.14. Diagnostic Findings Initial ECG showed probable atrial flutter with 2:1 AV conduction and a ventricular rate of 123 bpm, left anterior fascicular block, LVH with repolarization abnormality, and minor ST elevation in the inferior leads. The second ECG showed atrial flutter with variable AV block and a ventricular rate of 86 bpm, heart rate had decreased by 37 bpm. Chest x-ray showed cardiomegaly with increased interstitial markings suggesting pulmonary vascular congestion. Echocardiogram showed EF 50 to 55% with moderate LVH, mild MR, mild to moderate TR, mild pulmonary hypertension. PG Care Time/CCT Total # of Minutes Spent Total Time Spent with Patient: Total time spent is greater than 50% in coordination of care (as documented) at patient's floor/unit and/or counseling patient: Coding Level of Care Code 49754 IN/OBS CONSULT LVL 4,60M Diagnoses Atrial flutter I48.92 HTN (hypertension) I10 (HFpEF) heart failure with preserved ejection fraction I50.30 Elevated troponin R79.89 Hypomagnesemia E83.42 Swelling of both lower extremities M79.89 DMII (diabetes mellitus, type 2) E11.9
--- NOTE | 2023-11-26 12:05 | Hospitalist Progress Note ---
Date of Service November 26, 2023 Assessment & Plan (1) Atrial flutter: Plan: Rapid atrial fib/flutter on admission. Now rate controlled. Heparin drip has been switched over to oral Eliquis. Cardiology consultation appreciated. Thyroid profile is unremarkable. He remains on room air. Will repeat portable chest x-ray tomorrow, November 26. Eventual discharge to home on metoprolol and Eliquis along with a diuretic (2) Elevated troponin: Plan: No chest pain. No acute EKG changes. Telemetry. No evidence of acute coronary syndrome. No regional wall motion abnormalities noted on echo (3) Volume overload: Plan: Due to acute diastolic CHF. Continue Lasix diuresis. Repeat portable chest x- ray tomorrow, November 26. Monitor intake and output. (4) DMII (diabetes mellitus, type 2): Plan: [facility] ADA diet. Sliding scale coverage. Continue usual home regimen (5) HTN (hypertension): Plan: Stable. Continue current medical management. Metoprolol has been added to losartan (6) Cerebral arteriosclerosis with history of previous stroke: Plan: Stable. Continue statin and plavix (7) Tobacco abuse: Plan: Tobacco cessation encouraged. Nicotine gum as needed Plan Hopeful discharge to home tomorrowNovember 26 Admission and Anticipated Discharge Date Admission Date: November 25, 2023 Subjective Alert and oriented. No distress. It appears that he has new onset atrial flutter with variable block and a component of acute diastolic CHF. He has had a brisk response to parenteral Lasix diuresis so far. Chest x-ray is underpenetrated but appears to have congestive heart failure. Cardiac echo reveals ejection fraction of 50 to 55% with moderate left ventricular hypertrophy, left atrial enlargement as expected and mild MR. Thyroid profile is normal. Heparin drip has been switched over to Eliquis. Metoprolol is new. Troponin is mildly elevated but he has no chest pain and no evidence of acute coronary syndrome. He is pretty adamant about going home tomorrow, November 26. Will repeat portable chest x-ray in the morning. Review of Systems 2 Review of Systems: Constitutional-no fever or chills ENT-no blurred vision, no double vision, no epistaxis, no sore throat Respiratory-no cough, no wheezing. He does have dyspnea on exertion Cardiac-no palpitations, no chest pain, no syncope GI-no nausea, vomiting, diarrhea, melena, hematochezia -no urinary retention, no urinary incontinence, no dysuria, no hematuria Musculoskeletal-no joint pain, no muscle tenderness. He does note worsening lower extremity peripheral edema Skin-no bruising, no rashes, no pruritus Neuro-no isolated weakness, no paresthesia, no weakness Psych-no depression, no anxiety Physical Exam 2 Physical Exam: General-alert and oriented x3, no fever, no chills HEENT-head atraumatic and normocephalic, pupils equal and reactive to light, extraocular muscles intact Neck-no lymphadenopathy or thyromegaly, trachea midline Chest-diminished breath sounds bilaterally. No audible rales, wheezing, or rhonchi Cardiac-irregular rhythm. Controlled rate. Normal S1 and S2 Abdomen-normal bowel sounds, nontender, no hepatosplenomegaly Poeqqplbiiu-8-7+ pitting edema bilateral lower extremities below the knees Neuro-cranial nerves II through XII intact, motor and sensory function within normal limits, strength symmetrical, no focal deficits Psych-normal affect, normal mood Results & Data Results & Data Vital Signs (Past 12 Hours) Vital Signs Pulse Resp Pulse Ox 11/26/23 08:09 63 11/26/23 02:00 91 H 35 H 92 Laboratory Results 11/26/23 05:59 11/26/23 05:59 PG Care Time/CCT Total # of Minutes Spent Total Time Spent with Patient: Total time spent is greater than 50% in coordination of care (as documented) at patient's floor/unit and/or counseling patient: Coding Level of Care Code 74950 SUB INP/OBS CARE 3/50MIN Diagnoses Atrial flutter I48.92 Elevated troponin R79.89 Volume overload E87.70 DMII (diabetes mellitus, type 2) E11.9 HTN (hypertension) I10 Cerebral arteriosclerosis with history of previous stroke I67.2; Z86.73 Tobacco abuse Z72.0
[2023-11-26] MEDS: APIXABAN 5 MG TABLET PO SCH (13:16)
--- NOTE | 2023-11-26 16:10 | Electrocardiogram Report ---
Test Reason : Blood Pressure : / mmHG Vent. Rate : 104 BPM Atrial Rate : 241 BPM P-R Int : 000 ms QRS Dur : 086 ms QT Int : 318 ms P-R-T Axes : 087 -56 116 degrees QTc Int : 418 ms Atrial flutter with variable A-V block Left anterior fascicular block Pulmonary disease pattern Left ventricular hypertrophy with repolarization abnormality ( R in aVL , Raffy product ) Abnormal ECG When compared with ECG of 25-NOV-2023 12:03, No significant change was found Confirmed by Vishal Taylor ([id number]) on 11/26/2023 4:10:36 PM Referred By: REFERRED SELF Confirmed By:Vishal Taylor
[2023-11-26] MEDS: MAGNESIUM SULFATE / D5W 1 GM/100 ML BAG IV SCH (22:30)
--- NOTE | 2023-11-26 22:56 | Communication Note ---
Homer Moss was called at approximally 2245. Pt was reportedly getting up to use the bathroom and HRs up to 240. When I got to room patient was back in bed with heart rates in the 120s. EKG showed a flutter. He was given 5mg Lopressor IV and 2g magnesium sulfate. At bedside when I evaluated pt he was largely asymptomatic. Denies chest pain, dyspnea. Rates came down to 70s.Repeat labs, CXR ordered. K=3.4 and repleted. Trop elevated at 70, overall continues to downtrend from admission. Plan to start 25mg Metoprol succinate daily. He is anticoagulated with Eliquis. 5mg Lopressor IV ordered prn for rates >120. Date of Service: November 26, 2023
[2023-11-26] MEDS: METOPROLOL TARTRATE 1 MG/ML VIAL IV STA (22:57)
[2023-11-26 23:10] LABS: Basophils # (auto) 0.04 K/uL (0.00-0.20); Basophils % (auto) 0.6 %; Eosinophils # (auto) 0.18 K/uL (0.00-0.50); Eosinophils % (auto) 2.6 %; Hematocrit (blood only) 36.5 % (42.0-52.0); Hemoglobin 12.2 g/dl (14.0-18.0); Immature Granulocytes # (auto) 0.02 K/uL (0.01-0.20); Immature Granulocytes % (auto) 0.3 %; Lymphocytes # (auto) 2.03 K/uL (1.20-3.40); Mean Corpuscular Hemoglobin 28.8 pg (25.0-34.0); Mean Corpuscular Hgb Conc 33.4 g/dL (32.0-36.0); Mean Corpuscular Volume 86.3 fL (80.0-100.0); Mean Platelet Volume 9.5 fL (9.4-12.4); Monocytes # (auto) 0.72 K/uL (0.11-0.59); Monocytes % (auto) 10.3 %; Neutrophils # (auto) 4.02 K/uL (1.40-6.50); Neutrophils % (auto) 57.2 %; Platelet Count 231 K/uL (130-400); RDW Coefficient of Variation 16.1 % (11.5-14.5); RDW Standard Deviation 50.2 fL (36.4-46.3); Red Blood Count 4.23 M/uL (4.70-6.10); White Blood Count 7.01 K/ul (4.8-10.8)
[2023-11-26] MEDS: METOPROLOL TARTRATE 25 MG TAB PO SCH (23:11)
[2023-11-26 23:15] LABS: Albumin Globulin Ratio 1.1 (0.9-2); Albumin Level 3.7 gm/dl (3.4-5.0); BUN Creatinine Ratio 14.6 (10-20); Bilirubin,Total 0.9 mg/dl (0.2-1.0); Calcium 8.6 mg/dl (8.6-10.3); Creatinine Clr Calc Pharmacy 68.9 ml/min; Est GFR (Non-African American) 47.4 ml/min; Globulin 3.3 gm/dl (2.5-4.0); Magnesium 1.7 mg/dl (1.7-2.4); Potassium 3.4 mmol/L (3.5-5.1)
[2023-11-26 23:24] LABS: Troponin I High Sensitivity 70.9 pg/ml (0-20)
[2023-11-27] MEDS: POTASSIUM CHLORIDE CRTAB 20 MEQ TABCR PO STA (00:24)
[2023-11-27 06:48] LABS: Basophils # (auto) 0.04 K/uL (0.00-0.20); Basophils % (auto) 0.6 %; Eosinophils # (auto) 0.18 K/uL (0.00-0.50); Eosinophils % (auto) 2.8 %; Hematocrit (blood only) 37.9 % (42.0-52.0); Hemoglobin 12.5 g/dl (14.0-18.0); Immature Granulocytes # (auto) 0.01 K/uL (0.01-0.20); Immature Granulocytes % (auto) 0.2 %; Lymphocytes # (auto) 1.79 K/uL (1.20-3.40); Lymphocytes % (auto) 28.1 %; Mean Corpuscular Hemoglobin 28.7 pg (25.0-34.0); Mean Corpuscular Volume 86.9 fL (80.0-100.0); Mean Platelet Volume 9.5 fL (9.4-12.4); Monocytes # (auto) 0.87 K/uL (0.11-0.59); Monocytes % (auto) 13.7 %; Neutrophils # (auto) 3.47 K/uL (1.40-6.50); Neutrophils % (auto) 54.6 %; Platelet Count 236 K/uL (130-400); Red Blood Count 4.36 M/uL (4.70-6.10); White Blood Count 6.36 K/ul (4.8-10.8)
[2023-11-27 07:02] LABS: BUN Creatinine Ratio 14.8 (10-20); Calcium 8.7 mg/dl (8.6-10.3); Creatinine Clr Calc Pharmacy 79.3 ml/min; Est GFR (African American) 67.1 ml/min; Est GFR (Non-African American) 57.9 ml/min; Magnesium 2.1 mg/dl (1.7-2.4)
--- NOTE | 2023-11-27 07:12 | XRay Report ---
XR chest 1V portable CLINICAL HISTORY: Hypervolemia TECHNIQUE: Single frontal radiograph of the chest was obtained. Comparison: Comparison is made to chest radiograph dated 524 FINDINGS: Exam is limited by underpenetration. Cardiomegaly is noted. Prominence and cephalization of the vascu lature is seen. No evidence of pleural effusion or pneumothorax. IMPRESSION: Cardiomegaly and mild pulmonary edema. ACT 112: Negative or not required by law. Electronically signed by: Mainor Timmons M.D. 11/27/2023 7:10 AM
[2023-11-27] MEDS: METOPROLOL SUCC 25MG EXT REL TAB PO SCH (07:30)
--- NOTE | 2023-11-27 08:47 | XRay Report ---
XR chest 1V portable HISTORY: 67 years-old Male CHF acute shortness breath with reported congestive heart failure COMPARISON: 11/26/2023 TECHNIQUE: AP view of the chest FINDINGS: Cardiac silhouette is enlarged. Pulmonary vascular congestion with mildly progressive interstitial co arsening. Probable trace pleural effusions. No pneumothorax. Degenerative changes of the shoulders an d spine. IMPRESSION: 1. Cardiomegaly with mildly progressive pulmonary edema. 2. Trace pleural effusions. ACT 112: Negative or not required by law. The above report was generated using voice recognition software. It may contain grammatical, syntax o r spelling errors. Electronically signed by: Rock Plata M.D. 11/27/2023 8:45 AM
--- NOTE | 2023-11-27 09:31 | Electrocardiogram Report ---
Test Reason : Blood Pressure : / mmHG Vent. Rate : 127 BPM Atrial Rate : 254 BPM P-R Int : 000 ms QRS Dur : 094 ms QT Int : 302 ms P-R-T Axes : -70 -53 112 degrees QTc Int : 438 ms Poor data quality, interpretation may be adversely affected Atrial flutter with 2:1 A-V conduction Left axis deviation Left ventricular hypertrophy with repolarization abnormality Abnormal ECG When compared with ECG of 26-NOV-2023 15:33, HR has increased by 23 bpm Confirmed by Vishal Taylor ([id number]) on 11/27/2023 9:30:49 AM Referred By: REFERRED SELF Confirmed By:Vishal Taylor
--- NOTE | 2023-11-27 13:13 | Discharge Summary ---
Date of Service November 27, 2023 Admission HPI Per Admitting Provider Pradeep is a very pleasant 67 year old male with a PMH significant for previous CVA in 2016 with residual LUE weakness, current tobacco abuse (1 cigarette daily currently), alcohol use (1 beer daily), HTN, DMII, hyperlipidemia, anxiety, BPH, and Gout who presented to the [facility] ED on 11/25/23 from the via after being found in new onset atrial flutter. He was reported to be in atrial flutter with HR in the 120's on EMS arrival but otherwise stable. On arrival to the ED he was found to be in atrial flutter with a 2:1 AV block but was otherwise stable. Labs were significant for an initial high sen trop of 73. Chest xray was read as "Cardiomegaly with evidence of congestive failure.". The patient was given 1L NSS and 10 mg IV diltiazem in the ED and remained stable. Cardiology was consulted and recommended admission for initiation of anticoagulation, further workup, and initiation of beta blocking agents. At the time of the exam the patient was sitting comfortably in bed in no acute distress. He moved to [place] from [place] approximately one year ago. The main reason for his move was to gain sobriety from crack and alcohol use. He has not used recreational drugs since arriving in [place]. He states that at most he will have one beer a day. He will go through a six pack in approximately one week and denies a previous hx of withdrawal when he stops drinking. He confirms that he has been on plavix since his stroke in 2016. He denies a hx of previous WA, Cardiac stent placement, or previous hx of CHF. He states his recent A1c was 6.7, [facility]. He has been experiencing GRIGGS and mild left-sided chest pain for the past 2-3 months. He did not mention it to anyone as, "I didn't want to be a bother to anyone". He denies symptoms starting at rest and states that his symptoms resolve with rest. He has a chronic smoker's cough which has been unchanged. He denies the left-sided chest pain radiating to his back, neck, jaw, or arms and denies previous lightheadedness/dizziness. He has been experiencing progressive BL LE swelling but denies pain. Denies recent hemoptysis, pleuritic chest pain, abd pain, nausea, vomiting, diarrhea, dysuria, hematuria, melena, and recent trauma. He is a full code. We discussed starting anticoagulation due to his atrial flutter, he denies previous hx of major bleeding or recurrent falls. He is in agreement with starting anticoagulation today. Please refer to Dr. Marie's attestation for any changes to the treatment plan Principal Diagnosis Atrial flutter with variable block, acute diastolic congestive heart failure, elevated troponin without acute coronary syndrome Discharge Exam General-alert and oriented x3, no fever, no chills HEENT-head atraumatic and normocephalic, pupils equal and reactive to light, extraocular muscles intact Neck-no lymphadenopathy or thyromegaly, trachea midline Chest-diminished breath sounds bilaterally. No audible rales, wheezing, or rhonchi Cardiac-irregular rhythm. Controlled rate. Normal S1 and S2 Abdomen-normal bowel sounds, nontender, no hepatosplenomegaly Sjgywlhybkp-6-8+ pitting edema bilateral lower extremities below the knees Neuro-cranial nerves II through XII intact, motor and sensory function within normal limits, strength symmetrical, no focal deficits Psych-normal affect, normal mood Discharge Data Allergies Allergy/AdvReac Type Severity Reaction Status Date / Time ibuprofen [From Motrin] Allergy Unknown Verified 11/25/23 12:13 naproxen Allergy Unknown Verified 11/25/23 12:13 sertraline [From Zoloft] Allergy Unknown Verified 11/25/23 12:13 lisinopril AdvReac Unknown Verified 11/25/23 12:13 Consultations 11/25/23 13:08 Consult Cardiology Routine ED Decision to Admit Stat Ordered Studies 11/25/23 15:47 US venous doppler [facility] Routine Hospital Course (1) Atrial flutter: Rapid atrial fib/flutter on admission. He had an episode last night, November 25, where he had one-to-one conduction of atrial flutter and very rapid heart rate which has resolved. He was fortunately asymptomatic at the time. Arrangements have been made for transfer to [facility] for continued care. He has been accepted by [facility]. Heparin drip has been switched over to oral Eliquis. Cardiology consultation appreciated. Thyroid profile is unremarkable. He remains on room air. He is currently on metoprolol and Eliquis (2) Elevated troponin: No chest pain. No acute EKG changes. Telemetry. No evidence of acute coronary syndrome. No regional wall motion abnormalities noted on echo (3) Volume overload: Due to acute diastolic CHF. Much improved with Lasix diuresis. Repeat chest x- ray done today, November 26, looks better (4) DMII (diabetes mellitus, type 2): Reports latest A1c was 6.7 in the [place]. ADA diet. Sliding scale coverage. Continue usual home regimen (5) HTN (hypertension): Stable. Continue current medical management. Metoprolol has been added to losartan (6) Cerebral arteriosclerosis with history of previous stroke: Stable. Continue statin and plavix (7) Tobacco abuse: Tobacco cessation encouraged. Nicotine gum as needed Plan Transfer to [facility] todayNovember 26 Total Time Total Time Spent Total Time Spent (In Minutes): 50 minutes Discharge Plan Discharge Items Patient Disposition: Transfer [place] Hospital Reason For Visit: ATRIAL FLUTTER, ELEVATED TROPONIN Discharge Diagnosis: Atrial flutter with rapid ventricular rate, elevated troponin without acute coronary syndrome, acute diastolic congestive heart failure Activity: As commented below Activity Comment: Bedrest at this time Non-emergency contact: Primary Care Provider Call non-emergency contact if: your symptoms worsen Follow-up/Referrals: PCP,NO [Primary Care Provider] - Diet: Carb Consistent or DM2 and Heart Healthy Addtl Attending Provider Instructions: Follow-up with primary care provider soon as possible after discharge from [facility] Pending Studies at Discharge: No Stand-Alone Forms: [facility] [address] Sk[facility] Items Patient informed of condition?: Yes DNR: No Discharge Level of Care: Other Communicable Disease: No Discharge Prognosis: Stable Lines: Peripheral IV Urinary Catheter: No Medications and DC Order Prescriptions: New Nitro-Bid 2 % Ointment 0.5 inch EXT Q6H Qty: 0 0RF metoprolol tartrate 5 mg/5 mL Solution 5 mg IV Q4H PRNQty: 0 0RF nicotine (polacrilex) [Nicorette] 2 mg Gum 2 mg MT Q4H PRN (Reason: nicotine cravings) Qty: 20 0RF furosemide 10 mg/mL Solution 40 mg IV Q12H Qty: 0 0RF Eliquis 5 mg Tablet 5 mg PO BID Qty: 0 0RF metoprolol succinate 25 mg Tablet Extended Release 24 Hr 25 mg PO QAM Qty: 0 0RF Continued atorvastatin 80 mg Tablet 40 mg PO DAILY Rx Instructions: Take 1/2 tab trazodone 50 mg Tablet 50 mg PO HS PRN (Reason: Insomnia) cyanocobalamin (vitamin B-12) [Vitamin B-12] 1,000 mcg Tablet 1,000 mcg PO DAILY clopidogrel [Plavix] 75 mg Tablet 75 mg PO DAILY allopurinol 100 mg Tablet 200 mg PO DAILY sildenafil 25 mg Tablet 25 mg PO DAILY PRN (Reason: .ED) Rx Instructions: administer 30 minutes to 4 hours before activity losartan 25 mg Tablet 25 mg PO DAILY oxybutynin chloride 5 mg Tablet Extended Release 24hr 5 mg PO DAILY hydroxyzine HCl 10 mg Tablet 50 mg PO BID PRN (Reason: Anxiety) prazosin 2 mg Capsule 2 mg PO HS carboxymethylcellulose sodium 0.5 % Dropperette 1 drp OPB QID duloxetine 20 mg Capsule,Delayed Release(Dr/Ec) 20 mg PO DAILY cholecalciferol (vitamin D3) [Vitamin D3] 25 mcg (1,000 unit) Tablet 25 mcg PO DAILY diclofenac sodium 1 % Gel 2 g TOPICAL QID PRN (Reason: .joint pain) turmeric 400 mg Capsule 0 mg PO DAILY PRN (Reason: ..) Discharge Orders: Discharge Order- CHF (Routine); Ordered 11/27/23 Ordered By: Marlon Garcia Admission Data Admit Date/Time: 11/25/23 13:18 Attending Provider: Marlon Garcia Admit Provider: Ronald Marie Primary Care Provider: PCP,NO Other Providers: Ronald Marie; Vishal Taylor; [facility] Coding Level of Care Code 00178 INP/OBS DISCH >30 MIN Diagnoses Atrial flutter I48.92 Elevated troponin R79.89 Volume overload E87.70 DMII (diabetes mellitus, type 2) E11.9 HTN (hypertension) I10 Cerebral arteriosclerosis with history of previous stroke I67.2; Z86.73 Tobacco abuse Z72.0
--- NOTE | 2023-11-27 15:06 | Cardiology Progress Note ---
Date of Service November 27, 2023 Assessment & Plan (1) Atrial flutter: (2) HTN (hypertension): (3) (HFpEF) heart failure with preserved ejection fraction: (4) Elevated troponin: (5) Hypomagnesemia: (6) Swelling of both lower extremities: (7) DMII (diabetes mellitus, type 2): Plan Although patient is doing well clinically, extreme tachycardia last evening warrants additional hospital time and further management. Since he has not yet shown signs of bradycardia, recommend increasing beta- shreyas aggressively while he remains in the hospital, in addition to the metoprolol succinate 25 mg he received this morning would start metoprolol tartrate 25 mg every 6 hours with hold orders for heart rate less than 50 bpm or SBP less than 90 mmHg. Depending upon his heart rate response overnight, could consolidate to long- acting metoprolol succinate in the morning. Continue anticoagulation with apixaban 5 mg twice daily. Continue diuresis with furosemide 40 mg IV every 12 hours while hospitalized, likely could use low-dose diuretic once his atrial flutter rate is controlled (perhaps adding 25 mg hydrochlorothiazide to his losartan). Recommend magnesium supplement upon discharge (since he was hypomagnesemic without being on a diuretic at the time of admission). Continue potassium supplement while receiving furosemide. Might hold losartan while his metoprolol is titrated to avoid hypotension. There is some issue as to whether his hospitalization here would be covered by insurance, whereas [facility] hospitalization certainly would be covered it would seem prudent for the patient to remain here given that he may only require another 24 hours of care. Admission and Anticipated Discharge Date Admission Date: November 25, 2023 Subjective Although he feels well and has no significant somatic complaints, overnight while walking to the bathroom his heart rate increased to 280 bpm for about 4 minutes (apparent atrial flutter with one-to-one conduction). Remarkably, although a code purple was called, he was essentially asymptomatic. Telemetry shows atrial flutter with rate currently in the 70-90 bpm range, last evening rate was generally 80-110 bpm with the exception of the extreme high rate of 280 bpm for a few minutes. Physical Exam Physical Exam: No distress. Afebrile. Normotensive. Pulse 87 bpm and slightly irregular. Skin: no ecchymoses or generalized lesions. HEENT: unremarkable. Neck: JVP elevated one third of the way to the angle of the jaw at 90 degrees, no carotid bruits. Lungs: Generally clear, few basilar crackles. No wheezing or accessory muscle use. Cardiac: Slightly irregular rhythm, normal S1-2, no obvious murmur. Abdomen: benign. Extremities: 2+ pretibial edema, pulses intact. Neurologic: normal affect and conversation, nonfocal. Results & Data Laboratory Results Potassium was low overnight but was repleted. I have some this morning with potassium 4.0, BUN 19, creatinine 1.28 (down from 1.51 yesterday) PG Care Time/CCT Total # of Minutes Spent Total Time Spent with Patient: Total time spent is greater than 50% in coordination of care (as documented) at patient's floor/unit and/or counseling patient: Coding Level of Care Code 99133 SUB INP/OBS CARE 3/50MIN Diagnoses Atrial flutter I48.92 HTN (hypertension) I10 (HFpEF) heart failure with preserved ejection fraction I50.30 Elevated troponin R79.89 Hypomagnesemia E83.42 Swelling of both lower extremities M79.89 DMII (diabetes mellitus, type 2) E11.9
[2023-11-27] MEDS ORDERED: METOPROLOL SUCC 25MG EXT REL TAB PO SCH (21:00)
== END 2023-11-27 16:30 ==
LOC: EDINP 10:35 → ED 10:35 → SUATTDRO 13:18 → 2S 11-26 16:06